=== PATIENT | male | born 1995 | race Caucasian/White ===

== ENCOUNTER 2020-03-18 14:58 | Outpatient (CLI) | payer BC, SELFPAY ==
[2020-03-19 14:38] LABS: SARS-CoV-2 RNA PCR Negative
== END 2020-03-18 14:59 | disposition home or self-care (01) ==
PROVIDERS: PCP Internal Medicine; Visit Provider Internal Medicine
DX: Z20.828 Contact with and (suspected) exposure to other viral communicable diseases (principal)
CPT/HCPCS: 87635; C9803; U0003

== ENCOUNTER 2020-06-15 11:50 | Outpatient (CLI) | payer BC, SELFPAY ==
[2020-06-17 17:05] LABS: SARS-CoV-2 RNA PCR Positive
== END 2020-06-15 11:51 | disposition home or self-care (01) ==
LOC: CHSLAB 11:52
PROVIDERS: PCP Internal Medicine; Visit Provider Internal Medicine
DX: U07.1 COVID-19 (principal)
CPT/HCPCS: 87635; C9803; U0003

== ENCOUNTER 2022-05-10 07:33 | Outpatient (CLI) | payer BC, SELFPAY ==
--- NOTE | ~2022-05-10 | US_ITS ---
US scrotum doppler INDICATION: Right inguinal/parietal swelling TECHNIQUE: Testicular sonogram utilizing grayscale and color Doppler FINDINGS: The testes are normal in size and appearance. No focal lesions are seen. The right testes measures 3.7 x 2.8 x 2 cm centimeters, and the left testis measures 4 x 2.8 x 1.9 cm cm. There is no rmal vascular flow to both testes. The right and left epididymides appear normal. There is a right varicocele. There is a small right hydrocele. IMPRESSION: 1. Right varicocele. 2: Small right hydrocele. Reviewed, dictated and finalized at location A.
== END 2022-05-10 07:34 | disposition home or self-care (01) ==
LOC: CHSIMG 07:36
PROVIDERS: PCP Internal Medicine; Visit Provider Internal Medicine
DX: N50.89 Other specified disorders of the male genital organs (principal)
CPT/HCPCS: 76870; 93976